=== PATIENT | male | born 1950 | race Caucasian/White ===

== ENCOUNTER 2020-03-25 09:38 | Observation (INO) | payer OTHER ==
[~2020-03-25] VITALS: Ht 180.3 cm; Wt 94.6 kg
--- NOTE | 2020-03-25 09:40 | NUR ---
ASSISTED TO ROOM VIA WHEELCHAIR, ACCOMPANIED BY .
[2020-03-25] MEDS ORDERED: LISINOPRIL20 MG PO (10:05)
[2020-03-25] MEDS ORDERED: FAMOTIDINE20 M1 PO (10:07)
[2020-03-25] MEDS ORDERED: ATORVASTATIN CA40 MG PO (10:07)
[2020-03-25] MEDS ORDERED: ASPIRIN81 MG PO (10:07)
[2020-03-25 10:27] LABS: HEMATOCRIT 40.8 % (39.0-50.0); HEMOGLOBIN 13.6 g/dl (14.0-18.0); IMMATURE GRANULOCYTES 0.7 % (0.0-5.0); MEAN CELL VOLUME 86.6 fL CALC (80.0-100.0); MEAN CORPUSCULAR HGB 28.9 pG CALC (26.0-32.0); MEAN CORPUSCULAR HGB CONC 33.3 g/dL CAL (32.0-36.0); NEUT# 3.11 thou/uL (1.82-7.42); RED BLOOD COUNT 4.71 mill/uL (4.70-6.10); RED CELL DISTRI WIDTH 13.3 % (11.5-15.5)
[2020-03-25 10:33] LABS: ALBUMIN 4.6 g/dL (3.2-5.0); ALKALINE PHOSPHATASE 74 u/l (38-126); ANION GAP 15 (6-22 (CALC)); BILIRUBIN, TOTAL 0.4 mg/dL (0.0-1.4); BUN 13 mg/dL (8-23); BUN/CREATININE RATIO 16 (12-20 (CALC)); CARBON DIOXIDE 23 mmol/l (22-30); CHLORIDE 102 mmol/l (95-108); CREATININE 0.8 mg/dL (0.7-1.3); GFR > 60 ML/MIN (>=60 (CALC)); GFR FOR AFR.AMER. > 60 ML/MIN (>=60 (CALC)); POTASSIUM 4.4 mmol/l (3.5-5.1); SGOT/AST 34 u/l (19-48); SODIUM 136 mmol/l (137-146); TOTAL PROTEIN 7.6 g/dL (6.3-8.2)
[2020-03-25 10:45] LABS: MYOGLOBIN 40 ng/mL (0 - 121)
--- NOTE | 2020-03-25 10:45 | NUR ---
AT BEDSIDE TO DISCUSS RESULTS AND PLAN OF CARE. PT AND SPOUSE VERBALIZE UNDERSTANDING.
--- NOTE | 2020-03-25 10:46 | NUR ---
PATIENT RESTING, SPOUSE AT BEDSIDE. DENIES NEEDS AT THIS TIME. BED LOCKED AND IN LOWEST POSITION, WILL CONTINUE TO MONITOR. CALL LIGHT IN REACH.
--- NOTE | 2020-03-25 11:54 | NUR ---
REPORT CALLED TO MADELEINE HALL
--- NOTE | 2020-03-25 11:55 | NUR ---
LAB AT BEDSIDE FOR SECOND TROPONIN
--- NOTE | 2020-03-25 12:00 | NUR ---
PATIENT TAKEN UPSTAIRS VIA WC, AAOX4, NO DISTRESS AND NO COMPLAINTS OF CHEST PAIN. PATIENT ON TELE MONITOR. TRANSPORTED WITH RN.
--- NOTE | 2020-03-25 12:00 | NUR ---
PATIENT AWAKE AND ALERT. BEING TREATED FOR PNEUMONIA. NOT READY FOR D/C
--- NOTE | 2020-03-25 12:16 | NUR ---
PATIENT ARRIVED TO UNIT FOR THE ER. TELE IN PLACE, IV INTACT AND VITALS TAKEN AND RECOREDED
[2020-03-25 12:38] VITALS: BP 145/56
[2020-03-25 14:50] VITALS: BP 142/74
--- NOTE | 2020-03-25 16:00 | NUR ---
PATIENT AWAKE AND ALERT WITH NO EXPRESSED NEEDS AT THIS TIME
[2020-03-25 19:00] VITALS: BP 136/82
--- NOTE | 2020-03-25 20:00 | NUR ---
PHYSICAL ASSESMENT COMPLETE. PT C/O OF MILD CHEST PAIN AND DISCOMFORT. SCHEDULED MEDICATIONS AND PRN MEDICATION ADMINISTERED, SEE E-MAR. PT DENIES ANY NEEDS AT THIS TIME. PLAN OF CARE REVIEWED, PT DENIES QUESTIONS, VERBALIZES UNDERSTANDING. ITEMS WITHIN REACH, BED LOCKED IN LOW POSITION W/ BEDRAILS UP X2. CALL DAVIS WITHIN REACH, AGREES TO CALL PRN.
[2020-03-25 23:45] VITALS: BP 137/80
--- NOTE | 2020-03-26 00:01 | NUR ---
PT LAYING IN BED WITH EYES CLOSED, APPEARS TO BE SLEEPING, APPEARS COMFORTABLE AND IN NO DISTRESS. RESPIRATIONS REGULAR AND UNLABORED. ITEMS REMAIN WITHIN REACH, CALL DAVIS REMAINS WITHIN REACH. BED REMAINS LOCKED AND IN LOW POSITION WITH BEDRAILS UP X2. WILL CONTINUE TO MONITOR.
--- NOTE | 2020-03-26 03:44 | NUR ---
PT RESTING IN BED, NO SIGNS OF DISTRESS NOTED, RESP EVEN AND UNLABORED. PT VOICES NO NEEDS OR COMPLAINTS AT THIS TIME. CALL LIGHT IN REACH, CONTINUE TO MONITOR.
[2020-03-26 03:55] VITALS: BP 121/68; BP 171/84
[2020-03-26 05:27] LABS: HEMATOCRIT 39.9 % (39.0-50.0); HEMOGLOBIN 12.8 g/dl (14.0-18.0); IMMATURE GRANULOCYTES 0.6 % (0.0-5.0); MEAN CELL VOLUME 89.3 fL CALC (80.0-100.0); MEAN CORPUSCULAR HGB 28.6 pG CALC (26.0-32.0); MEAN CORPUSCULAR HGB CONC 32.1 g/dL CAL (32.0-36.0); NEUT# 3.51 thou/uL (1.82-7.42); RED BLOOD COUNT 4.47 mill/uL (4.70-6.10); RED CELL DISTRI WIDTH 13.2 % (11.5-15.5)
[2020-03-26 05:54] LABS: ALBUMIN 3.9 g/dL (3.2-5.0); ALKALINE PHOSPHATASE 69 u/l (38-126); ANION GAP 12 (6-22 (CALC)); BILIRUBIN, TOTAL 0.4 mg/dL (0.0-1.4); BUN 13 mg/dL (8-23); BUN/CREATININE RATIO 16 (12-20 (CALC)); CALCULATED LDLCHOLESTEROL 85 mg/dL (62-129 (CALC)); CARBON DIOXIDE 26 mmol/l (22-30); CHLORIDE 103 mmol/l (95-108); CHOLESTEROL HDL RATIO 6.4 (<4.4 (CALC)); CREATININE 0.8 mg/dL (0.7-1.3); GFR > 60 ML/MIN (>=60 (CALC)); GFR FOR AFR.AMER. > 60 ML/MIN (>=60 (CALC)); HDL CHOLESTEROL 25 mg/dL (>=40); MAGNESIUM 2.1 mg/dL (1.6-2.3); POTASSIUM 4.3 mmol/l (3.5-5.1); SGOT/AST 28 u/l (19-48); SODIUM 136 mmol/l (137-146); TOTAL CHOLESTEROL 161 mg/dl (0-199); TOTAL PROTEIN 6.4 g/dL (6.3-8.2); TOTAL TRIGLYCERIDES 253 mg/dl (30-149); VLDL CHOLESTROL 51 mg/dl (4-45 (CALC))
[2020-03-26 07:34] VITALS: BP 128/80
--- NOTE | 2020-03-26 07:34 | NUR ---
PATIENT LAYING IN BED AT THIS TIME CALL LIGHT WITHIN REACH CENTRAL OFFICE TECHNICIAN DONE SEE INTERVENTIONS. DENIES ANY CHEST PAIN OR SHORTNESS OF BREATH AT THIS TIME. PATIENT STATING "I'M READY TO GO HOME".
[2020-03-26] MEDS ORDERED: TOPROL XL25 MG PO (10:25)
[2020-03-26 11:11] VITALS: BP 128/75
--- NOTE | 2020-03-26 12:00 | NUR ---
PETER Salomon/Roberto AT THIS TIME PATIENT VERBALIZES UNDERSTANDING OF DC INSTRUCTIONS AND FOLLOW UP .
--- NOTE | 2020-03-26 12:56 | NUR ---
Discharge instructions given. Patient verbalizes understanding of same. Discharged in stable condition via Wheelchair to Home with father. All belongings sent with pt.
== END 2020-03-26 12:55 | disposition home or self-care (01) | DRG 313 ==
LOC: ED 09:38 → ED-I 10:45 → ED 10:56 → MS2 10:57
PROVIDERS: Emergency Medicine; Nurse Practitioner; ADMIT Internal Medicine; ATTEND Internal Medicine
DX: R07.9 Chest pain, unspecified (principal); I16.0 Hypertensive urgency; I10 Essential (primary) hypertension; E78.5 Hyperlipidemia, unspecified; Z85.46 Personal history of malignant neoplasm of prostate; Z20.822 Contact with and (suspected) exposure to COVID-19
CPT/HCPCS: J1650